=== PATIENT | female | born 1945 | race Caucasian/White ===

== ENCOUNTER → 2023-05-30 07:52 | Outpatient (REF) | payer MEDICARE, OTHER, SELFPAY ==
[2023-05-30 10:47] LABS: ALT (SGPT) 11 U/L (0-35); AST (SGOT) 18 U/L (14-36); Albumin 3.9 g/dl (3.5-5.0); Alkaline Phosphatase 57 U/L (38-126); Blood Urea Nitrogen 15 mg/dl (7-17); Calcium 9.6 mg/dl (8.4-10.2); Carbon Dioxide 25 mmol/L (22-30); Chloride 105 mmol/L (98-107); Glucose 138 mg/dl (70-99); HDL Cholesterol 68 mg/dl; LDL Cholesterol, Calculated 44 mg/dl; Potassium 4.9 mmol/L (3.5-5.1); Sodium 134 mmol/L (135-145); Total Bilirubin 0.3 mg/dl (0.2-1.3); Total Cholesterol 130 mg/dl (50-199); Triglyceride 90 mg/dl (10-149); Very Low Density Lipoprotein 18 mg/dl (0-30); eGFR > 60.00
[2023-05-30 10:53] LABS: Microalbumin, Random Urine 2.5 mg/dl (0.6-1.7); Microalbumin/creatinine Ratio 21.6 mg/g
[2023-05-30 11:11] LABS: TSH 0.21 uIU/ml (0.47-4.68)
[2023-05-30 12:16] LABS: Glycohemoglobin (HgbA1c) 7.6 % (4.0-5.6)
== END ==
LOC: HWLAB 07:52
PROVIDERS: ATTENDING PHYSICIAN Internal Medicine; FAMILY PHYSICIAN Family Medicine
DX: E11.65 Type 2 diabetes mellitus with hyperglycemia (principal)
CPT/HCPCS: 36415; 80053; 80061; 82043; 82570; 83036; 84443

== ENCOUNTER → 2023-10-08 06:49 | Outpatient (REF) | payer MEDICARE, OTHER, SELFPAY ==
[2023-10-08 10:35] LABS: ALT (SGPT) 10 U/L (0-35); AST (SGOT) 22 U/L (14-36); Albumin 4.3 g/dl (3.5-5.0); Alkaline Phosphatase 45 U/L (38-126); Blood Urea Nitrogen 9 mg/dl (7-17); Calcium 10.1 mg/dl (8.4-10.2); Carbon Dioxide 28 mmol/L (22-30); Chloride 101 mmol/L (98-107); Glucose 118 mg/dl (70-99); HDL Cholesterol 58 mg/dl; LDL Cholesterol, Calculated 48 mg/dl; Potassium 4.4 mmol/L (3.5-5.1); Sodium 137 mmol/L (135-145); Total Bilirubin 0.4 mg/dl (0.2-1.3); Total Cholesterol 132 mg/dl (50-199); Total Protein 6.4 g/dl (6.3-8.2); Triglyceride 134 mg/dl (10-149); Very Low Density Lipoprotein 26 mg/dl (0-30); eGFR > 60.00
[2023-10-08 10:43] LABS: Vitamin D, 25-OH*** 41.6 ng/mL (30-80)
[2023-10-08 10:56] LABS: Glycohemoglobin (HgbA1c) 6.8 % (4.0-5.6)
[2023-10-08 10:57] LABS: TSH 0.28 uIU/ml (0.47-4.68)
[2023-10-08 11:55] LABS: Microalbumin, Random Urine < 0.6 mg/dl (0.6-1.7)
== END ==
LOC: HWLAB 06:49
PROVIDERS: ATTENDING PHYSICIAN Internal Medicine; FAMILY PHYSICIAN Family Medicine
DX: E11.65 Type 2 diabetes mellitus with hyperglycemia (principal); E55.9 Vitamin D deficiency, unspecified
CPT/HCPCS: 36415; 80053; 80061; 82043; 82306; 82570; 83036; 84443

== ENCOUNTER → 2024-03-18 08:29 | Outpatient (REF) | payer MEDICARE, OTHER, SELFPAY ==
[2024-03-18 10:13] LABS: ALT (SGPT) 10 U/L (0-35); AST (SGOT) 21 U/L (14-36); Albumin 4.4 g/dl (3.5-5.0); Alkaline Phosphatase 42 U/L (38-126); Blood Urea Nitrogen 13 mg/dl (7-17); Calcium 9.7 mg/dl (8.4-10.2); Carbon Dioxide 26 mmol/L (22-30); Chloride 95 mmol/L (98-107); Glucose 95 mg/dl (70-99); HDL Cholesterol 67 mg/dl; LDL Cholesterol, Calculated 50 mg/dl; Potassium 4.4 mmol/L (3.5-5.1); Sodium 131 mmol/L (135-145); Total Bilirubin 0.4 mg/dl (0.2-1.3); Total Cholesterol 134 mg/dl (50-199); Total Protein 6.6 g/dl (6.3-8.2); Triglyceride 89 mg/dl (10-149); Very Low Density Lipoprotein 17 mg/dl (0-30); eGFR > 60.00
[2024-03-18 10:18] LABS: Glycohemoglobin (HgbA1c) 6.4 % (4.0-5.6)
[2024-03-18 10:46] LABS: TSH 0.78 uIU/ml (0.47-4.68)
[2024-03-18 11:15] LABS: Microalbumin, Random Urine <0.6 mg/dl (0.6-1.7)
== END ==
LOC: HWLAB 08:29
PROVIDERS: ATTENDING PHYSICIAN Internal Medicine; FAMILY PHYSICIAN Family Medicine
DX: E11.65 Type 2 diabetes mellitus with hyperglycemia (principal)
CPT/HCPCS: 36415; 80053; 80061; 82043; 82570; 83036; 84443

== ENCOUNTER 2024-06-21 20:16 | Observation (INO) | payer MEDICARE, OTHER, SELFPAY ==
[2024-06-21] VITALS (8 sets, daily range): BP systolic 39–126; BP diastolic 22–80; BMI 22.0; BMI 21.5
[2024-06-21 14:00] LABS: % Basophils 0.3 % (0-2); % Eosinophils 0.3 % (0-6); % Immature Granulocytes 0.3 % (0-0.5); % Lymphocytes 20.8 % (20.5-51.1); % Monocytes 6.7 % (1.7-9.3); % Neutrophils 71.6 % (42.2-75.2); Absolute Lymphocytes 1.9 10^3/uL (1.2-3.4); Absolute Monocytes 0.6 10^3/uL (0.1-0.6); Absolute Neutrophils 6.4 10^3/uL (1.4-6.5); Hematocrit 35.9 % (37.0-47.0); Hemoglobin 11.9 g/dL (12.0-16.0); Mean Corp Hgb Conc. 33.1 g/dL (33.0-37.0); Mean Corpuscular Hgb 27.8 pg (27.0-31.0); Mean Corpuscular Volume 83.9 fL (81.0-99.0); Mean Platelet Volume 9.4 fL (7.4-10.4); Nucleated Red Blood Cells % 0 %; Platelet Count 254 10^3/uL (130-400); Red Blood Cell Count 4.28 10^6/uL (4.20-5.40); Red Cell Dist. Width 15.9 % (11.5-14.5)
[2024-06-21 14:29] LABS: ALT (SGPT) 13 U/L (0-35); AST (SGOT) 26 U/L (14-36); Albumin 4.5 g/dl (3.5-5.0); Alkaline Phosphatase 46 U/L (38-126); Blood Urea Nitrogen 15 mg/dl (7-17); Calcium 10.3 mg/dl (8.4-10.2); Carbon Dioxide 21 mmol/L (22-30); Chloride 102 mmol/L (98-107); Glucose 65 mg/dl (70-99); Lipase 287 U/L (23-300); Potassium 4.9 mmol/L (3.5-5.1); Sodium 138 mmol/L (135-145); Total Bilirubin 0.6 mg/dl (0.2-1.3); Total Protein 6.7 g/dl (6.3-8.2); eGFR > 60.00
--- NOTE | 2024-06-21 14:39 | EDRN ---
Pt states symptoms started on Sunday w/ nausea when attempting to eat. Has had no appetite for a week. Pt having trouble eating. Pt then started eating something (forcing her self to) even chicken broth or tea would vomit. Pt has history of
diabetes. Pt on at religious had severe N/V and diarrhea and felt faint. Pt went back into religious again and got sick again. Pt since has been unable to drink or eat. Diarrhea is liquid.
[2024-06-21 14:41] LABS: Glucose - Point of Care 63 mg/dl (70-99)
--- NOTE | 2024-06-21 14:43 | EDRN ---
Pt is on Oxempic and metformin for her diabetes. Ozempic is weekly and last dose on . Pt takes 1000 mg Metformin BID. Last dose this am.
--- NOTE | 2024-06-21 14:59 | EDRN ---
Jayy DANIELS in room w/ pt. PA informed of glucose 62 on arrival.
[2024-06-21] MEDS: NSS 1000 IV (15:19)
[2024-06-21] MEDS: ZOFRAN 4 MG IV (15:20)
--- NOTE | 2024-06-21 15:33 | ED.GENMED ---
History of Present Illness
General
Chief Complaint: Abdominal Symptoms
Source: patient and family
Exam Limitations: none
Time Seen by Provider: 06/21/24 14:37
Nursing documentation reviewed up to this point in time: agreed with
History of Present Illness
History of Present Illness:
Patient is an 79-year-old female with history hypertension, hyperlipidemia, diabetes presenting to the emergency department for evaluation of 4 days of nausea, vomiting, and diarrhea. Patient reports very little appetite and has been unable to
tolerate any food/liquid by mouth since Sunday. Patient denies any associated abdominal pain. No fevers or chills. Patient denies any known sick contacts. No chest pain or shortness of breath. No dysuria.
Patient's daughter states that her mom seems to intermittently struggle with lack of appetite however typically does not have any vomiting. This seems to be an acute change from her baseline.
Patient denies any recent hospitalizations. No recent antibiotic use.
Patient last injected Ozempic on Sunday.
Review of Systems
Review of Systems
Allergies reviewed?: Yes
All Other Systems: ROS reviewed and negative except as documented in HPI and ROS
Phy Exam
Physical Exam
Physical Exam:
Vitals: Patient's vital signs are stable. Afebrile
General: Patient is frail. No acute distress
Skin: Warm and dry, no rashes or lesions
Head: Normocephalic, atraumatic
Eyes: Sclera nonicteric.
Throat: Dry mucous membranes. Protecting airway
Neck: Normal ROM
Cardiac: Regular rate and rhythm, no murmurs.
Pulm: Normal respiratory effort, no wheezes, rales, rhonchi heard on exam.
Abdomen: Abdomen soft and nontender.
Extremities: No evidence of cyanosis or edema. Palpable DP pulses bilaterally
Neuro: AAOx3. Grossly intact.
Psychiatric: Normal affect.
Course
Orders/Labs/Results
Orders:
Orders
06/21/24 Breakfast
Regular
At Your Request: Full Participation
Does patient need a safe tray?: No
06/21/24 13:52
Complete Blood Count/With Diff Urgent
Comprehensive Metabolic Panel Urgent
Lipase Urgent
06/21/24 15:01
Electrocardiogram (*1) Urgent
Reason for Study: QTc Monitoring
CT Abd/pelvis W Iv Cont Urgent
Comment:
Reason For Exam: Intractable nausea/vomiting
EKG- Treatment ONCE
0.9% Sodium Chloride 1000 ml [Nss] 1,000 ml IV BOLUS
Ondansetron Injectable [Zofran] 4 mg IV NOW STA
06/21/24 15:23
Urinalysis Reflex To Culture Urgent
Date Specimen was Collected: 06/21/24
Time Specimen was Collected: 15:22
Urine Microscopic Reflex Cult Urgent
Urine Culture Urgent
JOHN Source: U
Specimen Description:
Obtained by: Random
Date Specimen was Collected: 06/21/24
Time Specimen was Collected: 15:22
06/21/24 18:57
Dextrose 50%-Water [Dextrose 50% Syringe] 12.5 grams IV NOW STA
06/21/24 19:00
Dextrose 5%/0.9%Sodchl 500 ml [D5/0.9% Sodium Chloride] 500 ml IV 100 mls/hr
06/21/24 20:03
Admit/Transfer Patient As Directed
Co-Sign Provider:
Level of Care: Observation services
Assign to:: Medical/Surgical
Physician / Group: Edil
Diagnosis: Gastroparesis / Hypoglycemia
06/21/24 20:04
PRN Pain Medication Management As Directed
May give lesser potent ordered pain med per pt: Yes
preference::
Protocol:: Medication orders for pain may be administered in a
manner that supports deferring to patient preference
when the pt is:
- Requesting an ordered lesser potent pain medication.
Least to most potent pain medications are defined
as: acetaminophen < NSAID < tramadol < opioids
(morphine, oxycodone, hydromorphone).
- Requesting a lesser dose of the same medication IF
ORDERED.
- Requesting a less intrusive route of administration
if both routes are prescribed by the provider (PO <
IV).
06/21/24 20:08
Code Status As Directed
Resuscitation Status: Full Code
06/21/24 22:16
Acetaminophen [Tylenol] 650 mg PO Q4HPRN PRN
Dextrose 50%-Water [Dextrose 50% Syringe] 12.5 grams IV [id number] PRN
Famotidine [Pepcid] 40 mg PO HS
Gabapentin [Neurontin] 400 mg PO HS
Glucagon [GlucaGen] 1 mg IM PRN PRN
Rosuvastatin Calcium [Crestor] 10 mg PO HS
Valsartan [Diovan] 40 mg PO HS
06/21/24 22:16
TSH Reflex To Free T4 Routine
Activity As Directed
Activity Level: Ambulate
With Assistance
Bedside Glucose Monitoring As Directed
Frequency: AC&HS
Additional Instructions:: Change to q6h if pt on TPN, tube feeding or not eating
I/O [Intake/ Output] As Directed
Frequency: Per unit guidelines
Pneumatic Compression Sleeves As Directed
Type: Knee high
Vital Signs As Directed
Frequency: Per unit guidelines
Oxygen Therapy [O2 Therapy] [RESP] Routine
Titrate/Wean O2 to maintain O2 sat greater than (%): 94
DX Deep Vein Thrombosis Video Routine
06/22/24 06:00
Basic Metabolic Panel IN AM
Complete Blood Count/No Diff IN AM
Glycohemoglobin (HgbA1c) IN AM
06/22/24 07:30
Insulin Aspart Corrective Low [Novolog Flexpen-Low Resistance] See Protocol SC AC
06/22/24 08:00
Pantoprazole [Protonix] 40 mg PO BID
Propranolol [Inderal] 80 mg PO BID
Abnormal Lab Results
06/21/24 06/21/24 06/21/24
13:52 14:39 15:23
Hgb 11.9 L g/dL
(12.0-16.0)
Hct 35.9 L %
(37.0-47.0)
RDW 15.9 H %
(11.5-14.5)
Carbon Dioxide 21 L mmol/L
(22-30)
Glucose 65 L mg/dl
(70-99)
Calcium 10.3 H mg/dl
(8.4-10.2)
Urine Ketones 3+ A
(Negative)
Leukocyte Esterase Rfl 2+ A
(Negative)
Urine RBC 3-6 A /HPF
(0-2)
Urine Bacteria (Reflex) Few A
(Negative)
Urine Albumin (Reflex) 2+ A
(Neg - Trace)
POC Glucose 63 L mg/dl
(70-99)
06/21/24 06/21/24 06/21/24
17:15 17:45 18:40
Hgb
Hct
RDW
Carbon Dioxide
Glucose
Calcium
Urine Ketones
Leukocyte Esterase Rfl
Urine RBC
Urine Bacteria (Reflex)
Urine Albumin (Reflex)
POC Glucose 52 L* mg/dl 67 L mg/dl 60 L mg/dl
(70-99) (70-99) (70-99)
06/21/24
20:04
Hgb
Hct
RDW
Carbon Dioxide
Glucose
Calcium
Urine Ketones
Leukocyte Esterase Rfl
Urine RBC
Urine Bacteria (Reflex)
Urine Albumin (Reflex)
POC Glucose 167 H mg/dl
(70-99)
06/21/24 13:52
06/21/24 13:52
Vital Signs
Initial and Last Documented VS:
Initial Vital Signs
Temp Pulse Resp BP Pulse Ox
98.0 F 93 16 107/80 98
06/21/24 13:13 06/21/24 13:13 06/21/24 13:13 06/21/24 13:13 06/21/24 13:13
Last Documented Vital Signs
Temp Pulse Resp BP Pulse Ox
97.4 F 81 16 126/59 96
06/21/24 22:20 06/21/24 22:55 06/21/24 22:20 06/21/24 22:55 06/21/24 22:20
MDM/Problems Addressed
Differential Diagnosis Includes:
Not limited to: Viral gastroenteritis, bowel obstruction, pancreatitis, acute dehydration, electrolyte derangements, etc.
MDM/Problems Addressed:
79 year old female with hx as documented presenting with 3 days of nausea,vomiting, diarrhea unable to tolerate PO intake. No associated abdominal pain or fevers. Vitals and physical exam as above. Patient appears dry with benign abdominal exam.
Cardio/pulmonary exam unremarkable. Labs obtained in triage. CBC without clinically significant abnormalities. Patient hypoglycemic with serum glucose of 65 likely secondary to dehydration and poor po intake. Will trial juice. Symptoms most
consistent with viral gastroenteritis however will check CT scan to r/o acute intraabdominal pathology. Will check urine and closely monitor.
Update: Patient unable to tolerate much PO intake - fingerstick glucose now at 60. Given inability to tolerate PO - will give 1/2 amp dextrose and start D5NS. CT scan without acute abnormalities. In lieu of hypoglycemia and dehydration secondary to
poor PO intake/ suspected gastroenteritis will admit patient for continued management. Patient accepted to hospitalist service in stable condition.
Chronic conditions affecting care:
Diabetes
Acute Exacerbation and/or Progression of Chronic Illness:
Acute hypoglycemia
*Radiology
Radiology exam reviewed: radiology read reviewed
*Pulse Oximetry
Patient hypoxic: no
*EKG
Interpreted by ED Provider?: Yes
EKG Intrepretation Date: 06/21/24
Interpretation: abnormal
Comparison EKG: no changes
Heart Rate: 81
Rate: normal
Rhythm: sinus
[place]: normal axis
Interval: normal interval
QRS Pattern: low voltage
Ischemia: no ischemia
*Manager Compensation Interpretation
Rate: normal
Interpretation: normal
Heart Rate: 86
Rhythm: sinus
*Critical Care Note
Total Time (30-74mins, 75-104mins- exclusive of procedures): Not Applicable
Patient Management
Discussion with other providers: Hospitalist
Escalation/DeEscalation of care consider admission/obs:
Admit indicated
ED Attending Note
-
Portions of this chart may have been created with voice recognition software.� Occasional wrong word or��sound alike� substitutions may have occurred due to the inherent limitations of voice recognition software.
Discharge Plan
Departure
Patient Disposition: Admit
Date of Disposition: 06/21/24
Time of Disposition: 19:14
Presentation/result/management discussed w/ accepting MD/DO: Hospitalist
Discharge Problem:
Nausea and vomiting, Hypoglycemia
Interventions
Interventions:
*Risk Screen - Suicide Last Done: 06/21/24 14:38
*General Assessment Last Done: 06/21/24 14:38
*Neglect/Abuse Screening Last Done: 06/21/24 14:38
*ED- Fall Risk Assessment Last Done: 06/21/24 14:38
*ED COVID-19 Vaccine History Last Done: 06/21/24 14:38
*Nursing Disposition Last Done: 06/21/24 22:27
[facility] Assessment Last Done: 06/21/24 15:45
Discharge Date and Time
Discharge Date/Time: 06/21/24 22:27
[2024-06-21 15:41] LABS: Urine Albumin 2+ (Neg - Trace); Urine Bilirubin Negative (Negative); Urine Character Clear (Clear); Urine Color Yellow; Urine Glucose Negative (Negative); Urine Ketone 3+ (Negative); Urine Leukocyte 2+ (Negative); Urine Nitrite Negative (Negative); Urine Occult Blood Negative (Negative); Urine Urobilinogen Negative (Neg - 1+)
[2024-06-21 15:54] LABS: Urine Bacteria Few (Negative); Urine Hyaline Cast 0-2 /LPF (0-2)
[2024-06-21 17:16] LABS: Glucose - Point of Care 52 mg/dl (70-99)
[2024-06-21 17:47] LABS: Glucose - Point of Care 67 mg/dl (70-99)
[2024-06-21 18:42] LABS: Glucose - Point of Care 60 mg/dl (70-99)
[2024-06-21] MEDS: DEXTROSE 50% SYRINGE 12.5 GRAMS IV (19:07)
[2024-06-21] MEDS: D5/0.9% SODIUM CHLORIDE 500 IV (19:12)
[2024-06-21 20:07] LABS: Glucose - Point of Care 167 mg/dl (70-99)
--- NOTE | 2024-06-21 20:13 | HPS.HSE ---
Family Physician
-
Family Physician: Krzysztof Nickerson
Chief Complaint
-
N/V/D
History of Present Illness
Patient is an 79y F with PMH significant for hypertension, DM-II and GERD / esophagitis who presents to ED complaining of N/V/D. Patient states that she started with N/V about 6 days ago. She has had very poor appetite and multiple episodes of
non-bloody emesis - typically following attempts at eating. For the past 3 days she has also had loose, non-bloody stools. She has no abdominal pain. No fevers / chills. Patient denies any known sick contacts and states that she does not 'feel
sick'. Patient reports prior h/o gastroparesis and N/V following anesthesia (Fentanyl) in the past. She states that her current symptoms seem similar.
Patient reports intermittent issues with N/V and poor appetite over the past 2 years.
She is on Ozempic - but states that she has been on her current dose for at least 1 year.
She also notes that she takes 'two tabs twice daily' of metformin - though it appears her dose was changed in March from 500mg tabs to 1000mg tabs.
Patient also states that she has lost a significant amount of weight in the past 2 years. Mostly following the N/V symptoms following her knee replacement. Her weight is down approximately 35 lbs in that time.
In the ED, patient feels improved following Zofran; however, she continues to have mild hypoglycemia and is presently on a dextrose infusion.
Medical History
Past Medical History
Past Medical History: Reports Other
Additional Past Medical History:
Hypertension
DM-II
GERD / Alanis's Esophagus
Spinal Stenosis
Sarcoidosis
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
Past Surgical History: Reports Other
Additional Past Surgical History:
Right TKA
Mediastinoscopy
Social History
Tobacco: Non-smoker
Alcohol: Occasional (Very rare)
Drug: None
Personal:
Living: With Family
Family History
Family History: Not pertinent
Allergies / Home Medications
Allergies reflects when Allergies were last updated in [facility].
Home Medications with original date entered in [facility]
Allergy/Medication List:
Allergies
Allergy/AdvReac Type Severity Reaction Status Date / Time
codeine Allergy Nausea / Verified 06/21/24 13:19
Vomiting
fentanyl Allergy Nausea / Verified 06/21/24 13:19
Vomiting
Home Medications
ascorbic acid (vitamin C) 1,000 mg tablet 1 g PO DAILY 06/21/24
biotin 5,000 mcg sublingual tablet 5,000 mcg sublingual DAILY 06/21/24
calcium carbonate 500 mg PO DAILY 06/21/24
cyanocobalamin (vitamin B-12) 1,000 mcg tablet (Vitamin B-12) 1,000 mcg PO DAILY 06/21/24
esomeprazole magnesium 40 mg capsule,delayed release 40 mg PO BID 06/21/24
famotidine 40 mg tablet 40 mg PO HS 06/21/24
gabapentin 100 mg capsule 100 mg PO HS 06/21/24
gabapentin 300 mg capsule 300 mg PO HS 06/21/24
metformin 1,000 mg tablet 1,000 mg PO BID 06/21/24
omega 7-ckp-aal-fish oil 1,200 mg (144 mg-216 mg) capsule (Fish Oil) 1 cap PO BID 06/21/24
polyvinyl alcohol 1.4 % eye drops (Artificial Tears (polyvinyl alcohol)) 1 drp ophthalmic (eye) DAILY PRN dry eyes 06/21/24
propranolol 80 mg tablet 80 mg PO BID 06/21/24
rosuvastatin 10 mg tablet 10 mg PO HS 06/21/24
semaglutide 0.25 mg or 0.5 mg (2 mg/3 mL) subcutaneous pen injector (Ozempic) 0.5 mg SC 06/21/24
valsartan 40 mg tablet 40 mg PO HS 06/21/24
Review of Systems
-
History Source: Patient
A 12 point ROS was completed and negative except as noted: Yes
Constitutional: Reports Fatigue; Denies Fever or Chills
Respiratory: Denies Cough or Trouble Breathing
Cardiac: Denies Chest Pain or Palpitations
Abdomen/GI: Reports Nausea, Vomiting, Diarrhea and Anorexia; Denies Abdominal Pain, Bloody Stools or Black Stools
: Denies Dysuria or Frequency
Musculoskeletal: Denies Joint Pain or Edema
Neurological: Denies Dizzy or Headache
Psych: Denies Depression or Anxiety
Physical Exam
Vital Signs
Vital Signs
Temp Pulse Resp BP Pulse Ox
98.0 F 89 15 107/80 98
06/21/24 13:13 06/21/24 17:15 06/21/24 17:15 06/21/24 13:13 06/21/24 17:15
Physical Exam
General: Other (79y F in no acute distress. )
HEENT: Moist mucous membranes and PERRLA
Respiratory: Clear; No Wheezes, Rales or Rhonchi
Cardiac: S1/S2 and Regular Rhythm; No Murmur
GI: Soft, Non Tender, Non Distended and Normal Bowel Sounds
Musculoskeletal: No Clubbing, No Cyanosis and No Edema
Neuro: AO x 3
Laboratory Results
-
06/21/24 13:52
06/21/24 13:52
Laboratory Results
Total Bilirubin 0.6 mg/dl (0.2-1.3) 06/21/24 13:52
AST 26 U/L (14-36) 06/21/24 13:52
ALT 13 U/L (0-35) 06/21/24 13:52
Alkaline Phosphatase 46 U/L (38-126) 06/21/24 13:52
Lipase 287 U/L (23-300) 04/19/25 13:52
Impression/Plan
-
A/P: Patient is an 79y F with PMH significant for HTN, DM-II and GERD who presents to ED complaining of 5-6 days of N/V and seveal days of diarrhea.
N/V/D
- Observe overnight for further evaluation and treatment.
- Patient afebrile, no sick contacts and does not 'feel sick'.
- Taking excess dose of metformin (2000mg twice daily) as well as Ozempic despite reported history of gastroparesis.
- Hold both medications acutely. Would consider remaining off of Ozempic indefinitely given her ongoing GI issues.
- Follow temperature curve. Monitor for any new / recurrent symptoms.
- Diet as tolerated.
Hypoglycemia
DM-II
- Likely combination of med effect, poor PO intake, etc.
- Hold DM meds as noted above.
- Also note that patient has lost significant weight in the past 2 years - perhaps regimen could be adjusted.
- Continue supplemental dextrose for now - pending demonstration of adequate PO intake.
- Follow fingerstick glucose and adjust dextrose infusion as needed.
- Update A1C (was 6.4% in March).
Benign Hypertension
- BP on the lower side in the ED. ? volume losses due to GI symptoms.
- ? reduced medication need given weight loss as noted above.
- Continue propranolol and valsartan - but with holding parameters.
- Discharge meds to be adjusted based on inpatient requirements.
GERD / Alanis's
- Remote history of Alanis's - all recent biopsies have been negative for dysplasia.
- Continue current acid-suppression regimen.
Duodenal Carcinoid
- Isolated positive biopsy - all subsequent biopsies / follow-ups have been negative.
- Follow-up with GI as an outpatient.
DVT Prophylaxis: SCDs
Code Status: Full
--- NOTE | 2024-06-21 22:20 | PTCARENOTE ---
Pt arrived onto floor @2220. Pt AAOx3 and able to walk into room without assistance. Pt with no complaints of pain or SOB at this time. Pt oriented to room and call avilez; will continue to monitor
[2024-06-21 22:32] LABS: Glucose - Point of Care 119 mg/dl (70-99)
[2024-06-21] MEDS: DIOVAN 40 MG PO (22:55)
[2024-06-21] MEDS: CRESTOR 10 MG PO (22:58)
[2024-06-21] MEDS: PEPCID 40 MG PO (22:58)
[2024-06-21] MEDS: NEURONTIN 400 MG PO (22:59)
[2024-06-22 03:14] LABS: Glucose - Point of Care 110 mg/dl (70-99)
[2024-06-22] MEDS: D5/0.9% SODIUM CHLORIDE 1000 IV (04:31)
[2024-06-22 05:50] LABS: Hematocrit 32.1 % (37.0-47.0); Hemoglobin 10.5 g/dL (12.0-16.0); Mean Corp Hgb Conc. 32.7 g/dL (33.0-37.0); Mean Corpuscular Hgb 27.9 pg (27.0-31.0); Mean Corpuscular Volume 85.1 fL (81.0-99.0); Mean Platelet Volume 9.8 fL (7.4-10.4); Platelet Count 215 10^3/uL (130-400); Red Blood Cell Count 3.77 10^6/uL (4.20-5.40); Red Cell Dist. Width 15.9 % (11.5-14.5); White Blood Cell Count 4.5 10^3/uL (4.8-10.8)
[2024-06-22 06:09] LABS: Blood Urea Nitrogen 10 mg/dl (7-17); Calcium 9.3 mg/dl (8.4-10.2); Carbon Dioxide 22 mmol/L (22-30); Chloride 106 mmol/L (98-107); Estimated Creatinine Clearance 50 ml/min; Glucose 114 mg/dl (70-99); Potassium 4.1 mmol/L (3.5-5.1); Sodium 138 mmol/L (135-145); eGFR > 60.00
[2024-06-22 07:16] LABS: Glucose - Point of Care 117 mg/dl (70-99)
[2024-06-22 07:20] VITALS: BP 96/66
[2024-06-22] MEDS: PROTONIX 40 MG PO (08:36)
[2024-06-22] MEDS: REGLAN 5 MG IV ×2 (08:36→12:26)
--- NOTE | 2024-06-22 09:04 | W.PN.HOSP.TC ---
Today's Communication/Plan
-
Discharge home if tolerates diet
Assessment / Plan
Assessment / Plan
Physical Exam
General: Other (79y F in no acute distress. )
HEENT: Moist mucous membranes and PERRLA
Respiratory: Clear; No Wheezes, Rales or Rhonchi
Cardiac: S1/S2 and Regular Rhythm; No Murmur
GI: Soft, Non Tender, Non Distended and Normal Bowel Sounds
Musculoskeletal: No Clubbing, No Cyanosis and No Edema
Neuro: AO x 3, followed commands
Psych: calm
Patient is an 79y F with PMH significant for HTN, DM-II and GERD who presents to ED complaining of 5-6 days of N/V and seveal days of diarrhea.
N/V/D
Suspect medication side effect
Patient was taking 2000 mg of metformin without realizing the strength of each tablet(she used to take 1000 twice a day as 2 tablets each 500 mg)
She feels much better this morning. She is tolerating diet. No nausea or vomiting. Status post IV fluid
Advised to hold metformin for 72 hours and restart her usual dose.
No leukocytosis. No fever. Carbon dioxide level is normal with normal renal function.
Hypoglycemia
DM-II
- Likely combination of med effect, poor PO intake, etc.
- Now resolved
Benign Hypertension
Monitor blood pressure. No headache. No chest pain.
GERD / Alanis's
- Remote history of Alanis's - all recent biopsies have been negative for dysplasia.
- Continue current acid-suppression regimen.
Duodenal Carcinoid
- Isolated positive biopsy - all subsequent biopsies / follow-ups have been negative.
- Follow-up with GI as an outpatient.
DVT Prophylaxis: SCDs
Code Status: Full
Discharge planning, patient requested to be discharged after tolerating her meals
Total discharge time spent to see the patient, examine the patient, review data and lab result, discuss discharge plan with patient, nursing staff around 65 minutes
Anticipated Discharge: Today
Subjective/Interval History
-
Date of Service: June 22, 2024
No chest pain
No sob
No abdominal pain
No nausea or vomiting
Objective Data
-
Labs:
Laboratory Results
06/22/24
05:11
WBC 4.5 L
Hgb 10.5 L
Hct 32.1 L
Plt Count 215
Sodium 138
Potassium 4.1
Chloride 106
Carbon Dioxide 22
BUN 10
Creatinine 0.6
Glucose 114 H
Calcium 9.3
Vital Signs:
Vital Signs
Temp Pulse Resp BP Pulse Ox
97.4 F 71 16 96/66 96
06/22/24 07:20 06/22/24 07:20 06/22/24 07:20 06/22/24 08:36 06/22/24 07:20
I&O
06/21/24 06/22/24 06/23/24
06:59 06:59 06:59
Intake Total 700 / 700
Balance 700 / 700
[2024-06-22 11:37] LABS: Glycohemoglobin (HgbA1c) 6.4 % (4.0-5.6)
[2024-06-22 12:23] LABS: Glucose - Point of Care 145 mg/dl (70-99)
--- NOTE | 2024-06-22 14:44 | W.DCSUMMARY ---
Discharge Summary
Discharge Data
Date of Admission: 06/21/24
Date of Discharge: 06/22/24
-
Pending Results: No
Hospital Course
79 years old female presented with nausea vomiting. Scan of the abdomen pelvis did not show acute findings. Patient did not have fever or leukocytosis. She was admitted to the hospital. She received intravenous fluids and antiemetic therapy.
Patient reported that she was taking metformin but she did not know she was taking double the dose. She was supposed to be on 1000 mg twice a day but she was taking 2000 mg twice daily after receiving a new prescription. There was change in
manufacturing of her regular pills. Patient started to feel better. She tolerated diet well. She was advised to hold metformin for 72 hours then resume at her usual dose. She was also advised to follow with her primary care
doctor/meat seafood associate if she continues to have symptoms for possible side effects from Ozempic. She remained hemodynamically stable and was discharged home in a stable condition.
Discharge Plan
-
Patient Disposition: Home (Routine Discharge)
Discharge Diagnosis/Procedures: Nausea, vomiting, likely related to Metformin
Diet: Diabetic, Carb Controlled
Referrals:
Krzysztof Nickerson DO [Family Provider] -
Prescriptions:
New
ondansetron HCl 4 mg tablet
4 mg PO Q8H PRN (Reason: nausea and vomiting) Qty: 20 0RF
Continued
ascorbic acid (vitamin C) 1,000 mg Tablet
1 g PO DAILY
propranolol 80 mg tablet
80 mg PO BID
famotidine 40 mg tablet
40 mg PO HS
cyanocobalamin (vitamin B-12) [Vitamin B-12] 1,000 mcg Tablet
1,000 mcg PO DAILY
calcium carbonate 500 mg calcium (1,250 mg) Tablet
500 mg PO DAILY
esomeprazole magnesium 40 mg capsule,delayed release(DR/EC)
40 mg PO BID
gabapentin 300 mg capsule
300 mg PO HS
Rx Instructions:
with 100mg
gabapentin 100 mg capsule
100 mg PO HS
Rx Instructions:
with 300mg
valsartan 40 mg tablet
40 mg PO HS
rosuvastatin 10 mg tablet
10 mg PO HS
omega 0-lwd-cok-fish oil [Fish Oil] 1,200 (144-216) mg Capsule
1 cap PO BID
biotin 5,000 mcg Tablet, Sublingual
5,000 mcg SUBLINGUAL DAILY
Ozempic 0.25 mg or 0.5 mg (2 mg/3 mL) pen injector
0.5 mg SC TH
polyvinyl alcohol [Artificial Tears (polyvin alc)] 1.4 % Drops
1 drp OPHTHALMIC (EYE) DAILY PRN (Reason: dry eyes)
Held
metformin 1,000 mg tablet
1,000 mg PO BID
Hold Instructions: Resume on 06/26/24.
Discharge Orders:
Discharge Patient (As Directed); Ordered 06/22/24
Ordered By: Pily Frederick
Discharge Date and Time
Print Language: ANGUILLAN
--- NOTE | 2024-06-22 14:51 | CM ---
Met with patient and at bedside
COLL[facility] form explained; form signed @1440
Pharmacy verified: [facility] @ [address]
Patient and live in a one floor in-law suite (daughter's home); bath is handicap accessible; walk-in shower
PLOF: independent with ambulation, ADLs; drives; retired
DME: [employer]
NO SNF utilization history; Home Health for PT years ago
will transport home
Plan: Discharge to home today; no needs
[2024-06-22 15:00] VITALS: BP 108/64
== END 2024-06-22 15:14 | disposition home or self-care (01) ==
LOC: 4 WEST ACU 20:16
PROVIDERS: Emergency Medicine; Physician Assistant; ADMITTING PHYSICIAN Hospitalist; ATTENDING PHYSICIAN Internal Medicine; EMERGENCY PHYSICIAN Emergency Medicine; FAMILY PHYSICIAN Family Medicine
DX: R11.2 Nausea with vomiting, unspecified (principal); R10.9 Unspecified abdominal pain; E11.43 Type 2 diabetes mellitus with diabetic autonomic (poly)neuropathy; R63.0 Anorexia; R19.7 Diarrhea, unspecified; E86.0 Dehydration; E78.5 Hyperlipidemia, unspecified; I10 Essential (primary) hypertension; K22.70 Barrett's esophagus without dysplasia; K57.30 Diverticulosis of large intestine without perforation or abscess without bleeding; D25.9 Leiomyoma of uterus, unspecified; K21.00 Gastro-esophageal reflux disease with esophagitis, without bleeding; E11.649 Type 2 diabetes mellitus with hypoglycemia without coma; R94.31 Abnormal electrocardiogram [ECG] [EKG]; D86.9 Sarcoidosis, unspecified; Z68.21 Body mass index [BMI] 21.0-21.9, adult; Z79.85 Long-term (current) use of injectable non-insulin antidiabetic drugs; Z87.19 Personal history of other diseases of the digestive system; Z96.651 Presence of right artificial knee joint; Z88.5 Allergy status to narcotic agent; Z79.84 Long term (current) use of oral hypoglycemic drugs
CPT/HCPCS: 74177; 80048; 80053; 81003; 81015; 82962; 83036; 83690; 84443; 85025; 85027; 87070; 87086; 93005; 96361; 96374; 96375; 99285; G0378; Q9967

== ENCOUNTER → 2024-09-01 08:52 | Outpatient (REF) | payer MEDICARE, OTHER, SELFPAY ==
[2024-09-01 12:06] LABS: Glycohemoglobin (HgbA1c) 7.1 % (4.0-5.6)
[2024-09-01 12:13] LABS: ALT (SGPT) < 10 U/L (0-35); AST (SGOT) 18 U/L (14-36); Albumin 4.2 g/dl (3.5-5.0); Alkaline Phosphatase 44 U/L (38-126); Blood Urea Nitrogen 17 mg/dl (7-17); Calcium 10.2 mg/dl (8.4-10.2); Carbon Dioxide 27 mmol/L (22-30); Chloride 107 mmol/L (98-107); Glucose 115 mg/dl (70-99); HDL Cholesterol 70 mg/dl; LDL Cholesterol, Calculated 49 mg/dl; Potassium 4.7 mmol/L (3.5-5.1); Sodium 140 mmol/L (135-145); Total Bilirubin 0.6 mg/dl (0.2-1.3); Total Cholesterol 141 mg/dl (50-199); Total Protein 6.4 g/dl (6.3-8.2); Triglyceride 111 mg/dl (10-149); Very Low Density Lipoprotein 22 mg/dl (0-30); eGFR > 60.00
[2024-09-01 12:21] LABS: Microalbumin, Random Urine <0.6 mg/dl (0.6-1.7)
[2024-09-01 12:39] LABS: TSH 1.48 uIU/ml (0.47-4.68)
== END ==
LOC: HWLAB 08:52
PROVIDERS: ATTENDING PHYSICIAN Internal Medicine; FAMILY PHYSICIAN Family Medicine
DX: E11.65 Type 2 diabetes mellitus with hyperglycemia (principal)
CPT/HCPCS: 36415; 80053; 80061; 82043; 82570; 83036; 84443

== ENCOUNTER → 2024-12-23 07:28 | Outpatient (REF) | payer MEDICARE, OTHER, SELFPAY ==
[2024-12-23 11:04] LABS: ALT (SGPT) 10 U/L (0-35); AST (SGOT) 17 U/L (14-36); Albumin 3.9 g/dl (3.5-5.0); Alkaline Phosphatase 43 U/L (38-126); Blood Urea Nitrogen 13 mg/dl (7-17); Calcium 9.2 mg/dl (8.4-10.2); Carbon Dioxide 27 mmol/L (22-30); Chloride 106 mmol/L (98-107); Glucose 141 mg/dl (70-99); HDL Cholesterol 64 mg/dl; LDL Cholesterol, Calculated 47 mg/dl; Potassium 4.2 mmol/L (3.5-5.1); Sodium 138 mmol/L (135-145); Total Protein 6.0 g/dl (6.3-8.2); Very Low Density Lipoprotein 19 mg/dl (0-30); eGFR > 60.00
[2024-12-23 11:09] LABS: Microalb - Urine Creatinine 64.500 mg/dl
[2024-12-23 11:15] LABS: Microalbumin, Random Urine 0.7 mg/dl (0.6-1.7)
[2024-12-23 11:19] LABS: Glycohemoglobin (HgbA1c) 7.1 % (4.0-5.6); TSH 0.95 uIU/ml (0.47-4.68)
== END ==
LOC: HWLAB 07:28
PROVIDERS: ATTENDING PHYSICIAN Internal Medicine; FAMILY PHYSICIAN Family Medicine
DX: E11.65 Type 2 diabetes mellitus with hyperglycemia (principal)
CPT/HCPCS: 36415; 80053; 80061; 82043; 82570; 83036; 84443

== ENCOUNTER → 2025-02-16 11:36 | Outpatient (REF) | payer MEDICARE, OTHER, SELFPAY | LOC: RAD 11:36 | PROVIDERS: ATTENDING PHYSICIAN Physician Assistant | DX: M25.562 Pain in left knee (principal) | CPT/HCPCS: 73564 ==